=== PATIENT | male | born 1955 | race Hispanic/Latino ===

== ENCOUNTER 2018-09-11 09:02 | Day surgery (SDC) | payer BC ==
[2018-09-08 17:00] VITALS: BP 112/60
[2018-09-08 17:21] LABS: BASOPHILS % (AUTO) 1.2 % (0.0-5.0); HEMATOCRIT 40.9 % (42-54); MEAN CORPUSCULAR HEMOGLOBIN 31.2 pg (27.0-33.0); MEAN CORPUSCULAR HGB CONC 32.8 g/dL (32.0-36.0); MEAN CORPUSCULAR VOLUME 95.1 fL (79-99); MONOCYTES % (AUTO) 6.2 % (3.0-13.0); NEUTROPHILS % (AUTO) 62.6 % (40.0-77.0); NUCLEATED RED BLOOD CELLS 0.1 % (0.0-0.19); PLATELET COUNT (AUTO) 253 K/uL (130-400); RED BLOOD CELL COUNT(AUTO) 4.31 MIL/uL (4.50-6.20); RED CELL DISTRIBUTION WIDTH 13.9 % (11.0-15.5); WHITE BLOOD COUNT (AUTO) 8.2 K/uL (4.8-10.8)
[2018-09-08 17:26] LABS: CREATININE 0.9 mg/dL (0.5-1.5); POTASSIUM 4.2 mmol/L (3.5-5.1)
[2018-09-08 17:31] LABS: INR 1.04 (0.85-1.15); PROTHROMBIN TIME 10.9 SEC (9.6-11.6)
[2018-09-08 17:38] LABS: APPEARANCE,URINE Clear (CLEAR); BILIRUBIN,URINE Negative (NEGATIVE); COLOR,URINE Dark Yellow (YELLOW); GLUCOSE, URINE (UA) Negative (NEGATIVE); KETONES,URINE Negative (NEGATIVE); LEUKOCYTE ESTERASE ,URINE Moderate (NEGATIVE); NITRATE,URINE Negative (NEGATIVE); OCCULT BLOOD,URINE Negative (NEGATIVE); PROTEIN,URINE Negative (NEGATIVE)
[2018-09-08 17:49] LABS: RBC,URINE 0-1 /HPF (0-1)
[2018-09-08 17:50] LABS: BACTERIA,URINE Rare /HPF (None Seen)
[2018-09-08 17:51] LABS: SQUAMOUS EPITHELIAL CELL,UR Rare /HPF (0-2)
[2018-09-11] VITALS (19 sets, daily range): BP systolic 51–132; BP diastolic 56–80
[~2018-09-11] VITALS: Ht 177.8 cm; Wt 102.1 kg
[~2018-09-11 09:02] MED LIST: APIX5TAB PO; CETI10TA57 PO; FLUTICASONE NASAL; GENTAMICIN SULFATE 500 MG in SODIUM CHLORIDE 0.9% 100 ML IV PRN; LORA0.5T2 PO; METO50TA18 PO; PARO-37 PO; PROP150T28 PO; ROSU5TAB11 PO; SULF1TAB42 PO; TAMS0.4C32 PO
[2018-09-11] MEDS ORDERED: LACTATED RINGERS 1000ML 1,000 ML IV ONE (09:39)
[2018-09-11] MEDS: MEROPENEM 1 GM VIAL IVP PRN ×2 (10:28→12:40)
[2018-09-11] MEDS ORDERED: PROPOFOL 10 MG/ML 20ML VIAL IV ONE (12:13)
[2018-09-11] MEDS ORDERED: FENTANYL CITRATE PF 50 MCG/1 ML 5ML AMP IV ONE (12:13)
[2018-09-11] MEDS ORDERED: MIDAZOLAM HCL 1 MG/ML 2ML VIAL ONE (12:13)
[2018-09-11] MEDS ORDERED: ROCURONIUM 10MG/1ML SYR 10 MG/ML ML ONE ×2 (12:16→13:32)
[2018-09-11] MEDS ORDERED: ONDANSETRON HCL 4 MG/2 ML VIAL ONE (12:47)
[2018-09-11] MEDS ORDERED: NEOSTIGMINE 5MG/5ML SYR IV ONE (13:38)
[2018-09-11] MEDS ORDERED: GLYCOPYRROLATE 1 MG/5 ML SYRINGE ONE (13:38)
[2018-09-11] MEDS ORDERED: MEPERIDINE-PF 25 MG/ML SYG ONE ×2 (14:14→14:30)
[2018-09-11] MEDS ORDERED: ACETAMINOPHEN-CODEINE 300/30MG TAB ONE (15:29)
[2018-09-11] MEDS ORDERED: ACETAMINOPHEN-CODEINE 300/30MG TAB PO ONE (15:30)
== END 2018-09-11 16:40 | disposition home or self-care (01) ==
LOC: DAH 09:02
PROVIDERS: ATTEND Urology
DX: N40.1 Benign prostatic hyperplasia with lower urinary tract symptoms (principal); N39.0 Urinary tract infection, site not specified; R07.9 Chest pain, unspecified; Z79.899 Other long term (current) drug therapy; I10 Essential (primary) hypertension; J44.9 Chronic obstructive pulmonary disease, unspecified; G47.33 Obstructive sleep apnea (adult) (pediatric); R73.9 Hyperglycemia, unspecified; Z98.890 Other specified postprocedural states; Z82.49 Family history of ischemic heart disease and other diseases of the circulatory system; Z83.3 Family history of diabetes mellitus; F17.200 Nicotine dependence, unspecified, uncomplicated; Z88.8 Allergy status to other drugs, medicaments and biological substances; Z68.32 Body mass index [BMI] 32.0-32.9, adult; E78.2 Mixed hyperlipidemia; I25.10 Atherosclerotic heart disease of native coronary artery without angina pectoris; I48.0 Paroxysmal atrial fibrillation; Z79.01 Long term (current) use of anticoagulants
CPT/HCPCS: 36415; 52648; 71045; 80048; 81001; 85025; 85610; 87088; 88305; 93005; 96365; A4218; A4354; A4358; A4600; A4649; J1580; J2175 ×2; J2185; J2250; J2405; J2704; J2710; J3010; J3490; J7030; J7120

== ENCOUNTER 2019-08-23 00:29 | Emergency (ER) | payer BC ==
[~2019-08-23 00:29] MED LIST changes: -APIX5TAB PO; -GENTAMICIN SULFATE 500 MG in SODIUM CHLORIDE 0.9% 100 ML IV PRN; -ROSU5TAB11 PO; +ROSU5TAB12 PO
[2019-08-23] MEDS ORDERED: TETRACAINE HCL 0.5% 4 ML OPHTH SOLN ONE (01:02)
[2019-08-23] MEDS ORDERED: FLUORESCEIN SODIUM 1 STRIP STRIP ONE (01:02)
[2019-08-23] MEDS ORDERED: ERYTHROMYCIN BASE 0.5% OPHTH OINT 1 GM TUBE ONE (01:56)
[2019-08-23] MEDS ORDERED: TETANUS/DIPHTHERIA TOXOID [ADULT] 0.5 ML VIAL IM ONE (01:56)
== END 2019-08-23 03:10 | disposition home or self-care (01) ==
LOC: EDH 00:29
DX: S05.01XA Injury of conjunctiva and corneal abrasion without foreign body, right eye, initial encounter (principal); Z88.5 Allergy status to narcotic agent; Z88.1 Allergy status to other antibiotic agents; Z72.0 Tobacco use; X58.XXXA Exposure to other specified factors, initial encounter; Y93.89 Activity, other specified; Y92.89 Other specified places as the place of occurrence of the external cause; Y99.8 Other external cause status
CPT/HCPCS: 90471; 90714